=== PATIENT | male | born 1935 | race Caucasian/White ===

== ENCOUNTER 2017-02-01 12:44 | Emergency (ER) | payer OTHER ==
[2017-02-01 16:09] VITALS: BP 122/60
== END 2017-02-01 16:09 | disposition home or self-care (01) ==
LOC: ED 12:44
DX: S51.842A Puncture wound with foreign body of left forearm, initial encounter (principal); I10 Essential (primary) hypertension; H50.00 Unspecified esotropia; X58.XXXA Exposure to other specified factors, initial encounter; Y93.89 Activity, other specified; Y99.8 Other external cause status; Y92.89 Other specified places as the place of occurrence of the external cause
CPT/HCPCS: 90715; Q0092

== ENCOUNTER 2017-05-13 17:58 | Emergency (ER) | payer OTHER ==
[~2017-05-13] VITALS: Ht 180.3 cm; Wt 110.2 kg
[2017-05-13 18:13] VITALS: Ht 180.3 cm; Wt 110.2 kg
[2017-05-13 19:30] VITALS: BP 160/85
== END 2017-05-13 19:35 | disposition home or self-care (01) ==
LOC: ED 17:58
DX: L02.212 Cutaneous abscess of back [any part, except buttock and flank] (principal); I10 Essential (primary) hypertension
CPT/HCPCS: J2001

== ENCOUNTER 2017-05-17 16:36 | Emergency (ER) | payer OTHER ==
[~2017-05-17] VITALS: Ht 182.9 cm; Wt 108.9 kg
[2017-05-17 16:43] VITALS: BP 148/77
== END 2017-05-17 17:38 | disposition home or self-care (01) ==
LOC: ED 16:36
DX: Z48.00 Encounter for change or removal of nonsurgical wound dressing (principal); I10 Essential (primary) hypertension

== ENCOUNTER 2018-08-03 11:39 | Emergency (ER) | payer OTHER ==
[~2018-08-03] VITALS: Ht 177.8 cm; Wt 79.8 kg
[2018-08-03 11:43] VITALS: Ht 177.8 cm; Wt 79.8 kg
[2018-08-03 15:17] VITALS: BP 140/67
== END 2018-08-03 15:17 | disposition home or self-care (01) ==
LOC: ED 11:39
DX: S29.9XXA Unspecified injury of thorax, initial encounter (principal); I10 Essential (primary) hypertension; E78.00 Pure hypercholesterolemia, unspecified; H27.03 Aphakia, bilateral; M79.631 Pain in right forearm; Z98.890 Other specified postprocedural states; W01.190A Fall on same level from slipping, tripping and stumbling with subsequent striking against furniture, initial encounter; Y93.89 Activity, other specified; Y92.89 Other specified places as the place of occurrence of the external cause; Y99.8 Other external cause status